=== PATIENT | male | born 1940 | race Caucasian/White ===

== ENCOUNTER → 2017-01-26 | Outpatient (CLI) | payer OTHER ==
[~2017-01-26] MED LIST: ASCA500 PO; ASPI81TA28 PO; ATEN-173 PO; CHOL1000 PO; EZET10TA63 PO; HYDR-5688 PO; LISI2.5T5 PO; METR-163 PO; OMEG10007 PO; PRLSR20 PO; ROSU40TA PO
--- NOTE | 2017-01-26 11:00 | DIAGNOSTIC IMAGING REPORT ---
PET/CT HISTORY: PULMONARY NODULE TECHNIQUE: PET/CT was performed from the base of the skull through the pelvis following the intravenous administration of 15.4 mCi of F18-FDG. Non-contrast CT imaging was performed over the same range without breath-hold for attenuation correction of PET images and anatomic correlation, but not for primary interpretation as it is not of standard diagnostic quality. CT DOSE: 568.62 mGycm COMPARISON: None. FINDINGS: HEAD AND NECK: There is no FDG-avid disease or significant lymphadenopathy in the imaged portions of the head and the neck. CHEST: Altered focal nodular pathology. Pleural-based partially necrotic 5 x 3 cm nodule area in a GE characteristics extend to 12. Right middle lobe nodule measuring 2.7 cm with fibrotic stranding both to the right hilum as well as right lateral pleural surface. A.c. these extend to 5.6 mildly active nodular density right lower lobe measuring 1.4 cm transaxial image 103. Prior median sternotomy. Sessile density anterior right costophrenic angle demonstrating initially characteristics 7. Lateral right base demonstrates an additional linear area of increased pleural activity with SUV of 10. Several low level metabolic activity hilar nodes several additional parenchymal nodules too small to adequately characterize. Abdomen/pelvis: Liver demonstrates multiple hypodensities showing no abnormal increase in activity. This is most consistent with that of hepatic cysts. Unremarkable gastrointestinal as well as genitourinary tract activity characteristics. Unremarkable activity within the urinary bladder. Bilaterally. MUSCULOSKELETAL: There is no FDG-avid or destructive bone lesion. IMPRESSION: 1. Multiple metabolically active nodules throughout both hemithoraces. 2. Pleural based lesions of the right mid and lower hemithorax suggestive of metastatic deposits. 3. Mild mediastinal and/or hilar activity consistent with probable underlying metastatic disease. 4. Study is otherwise negative. 5. Findings of diffuse pulmonary metastatic disease is the diagnosis of exclusion. 6. Several small omental nodes ioo Small to quantify Electronically signed by: Saad Tejada M.D. 01/26/2017 10:57 AM Dictated Date/Time: 01/26/2017 10:44 AM
== END | disposition home or self-care (01) ==
LOC: C.PET 08:29
PROVIDERS: ATTEND Physician Assistant
DX: R91.1 Solitary pulmonary nodule (principal)

== ENCOUNTER 2017-02-25 09:59 | Day surgery (SDC) | payer OTHER ==
[2017-02-10 08:30] VITALS: BMI 31.0
[~2017-02-25] VITALS: Ht 172.7 cm; Wt 92.3 kg
[~2017-02-25 09:59] MED LIST changes: -HYDR-5688 PO; +LACTATED RINGER'S 1000ML 1,000 ML IV SCH
[2017-02-25 10:17] VITALS: BP 189/80; PULSE 64; TEMP 36.6; O2SAT 96; Ht 172.7 cm; Wt 92.3 kg
[2017-02-25] MEDS ORDERED: NURSING VERBAL MED ORDER ONE (10:45)
[2017-02-25] MEDS ORDERED: FENTANYL CITRATE INJ 50 MCG/1 ML 2 ML VIAL ONE (10:46)
[2017-02-25] MEDS ORDERED: MIDAZOLAM HCL 1 MG/ML 2ML VIAL ONE (10:46)
[2017-02-25] MEDS ORDERED: ONDANSETRON INJ 2 MG/ML 2 ML VIAL IV PRN (11:15)
[2017-02-25] MEDS ORDERED: PROMETHAZINE HCL INJ 6.25 MG in SODIUM CHLORIDE 0.9% 50ML 50 ML IV PRN (11:15)
[2017-02-25] MEDS ORDERED: FENTANYL CITRATE INJ 50 MCG/1 ML 2 ML VIAL IV PRN (11:15)
[2017-02-25] MEDS ORDERED: ATROPINE SULFATE 0.1 MG/ML 5ML SYR IV PRN (11:15)
[2017-02-25] MEDS ORDERED: EpHEDrine SULFATE INJ 50 MG/ML AMP IV PRN (11:15)
--- NOTE | 2017-02-25 11:15 | History & Physical Bridge Note ---
H&P Re-Evaluation Bridge Note: I have examined the patient, reviewed the History & Physical and in the interval since the performance of the History & Physical I have noted the following changes of clinical significance: No changes noted
[2017-02-25] MEDS ORDERED: ONDANSETRON INJ 2 MG/ML 2 ML VIAL ONE (11:52)
[2017-02-25] MEDS ORDERED: DEXAMETHASONE SOD INJ 4 MG/ML VIAL ONE (11:52)
[2017-02-25] MEDS ORDERED: GLYCOPYRROLATE INJ 0.2 MG/ML VIAL ONE (11:52)
[2017-02-25] MEDS ORDERED: NEOSTIGMINE METHYLSULFATE 5 MG/5 ML SYR ONE (11:52)
[2017-02-25] MEDS ORDERED: LIDOCAINE HCL 2% 2 ML VIAL (20MG/ML) ONE (11:52)
[2017-02-25] MEDS ORDERED: ROCURONIUM BROMIDE 10 MG/ML 5 ML VIAL ONE (11:52)
[2017-02-25] MEDS ORDERED: PROPOFOL IV EMULSION 10 MG/ML 20 ML VIAL IV ONE (11:52)
--- NOTE | 2017-02-25 13:38 | DIAGNOSTIC IMAGING REPORT ---
CHEST 1 VIEW FRONTAL CLINICAL HISTORY: NAVIGATIONAL BRONCH post bronchoscopy TECHNIQUE: Image intensifier COMPARISON STUDY: None FINDINGS: Image intensifier utilized for navigational bronchoscopy IMPRESSION: Image intensifier utilized for navigational bronchoscopy Electronically signed by: Saad Tejada M.D. 02/25/2017 1:37 PM Dictated Date/Time: 02/25/2017 1:36 PM
--- NOTE | 2017-02-25 13:48 | Bronchoscopy Procedure Note ---
Bronchoscopy Procedure Note Procedure: Flexible-Bronchoscopy, EBUS, FNA bx, Tbbx, GETA , cytology brushing, BAL Consent: Obtained through the patient placed into the chart Preprocedural diagnosis: Lung masses Postprocedural diagnosis: malignant lung masses Analgesia: GETA Sedation: GETA Procedure: The Olympus video bronchoscope and EBUS scope were used for this procedure Initially the flexible bronchoscope was used for evaluation of the airways. The ET tube was notably 5cm above the level of the tejal. Trachea: Visualized portion of the trachea was anatomically within normal limits Tejal: Anatomically within normal limits Right bronchial tree: Right mainstem bronchus: Anatomically within normal limits Right upper lobe: Anatomically within normal limits Bronchus intermedius: Anatomically within normal limits Right middle lobe: Anatomically within normal limits Right lower lobe: Anatomically within normal limits Findings: No significant findings noted Left bronchial tree: Left mainstem bronchus: Anatomically within normal limits Left upper lobe: Anatomically within normal limits Lingula: Anatomically within normal limits Left lower lobe: Anatomically within normal limits Findings: No significant findings noted EBUS/VERN: Tbbx Meryl Stations: 7: # of passes 7 R11: # of passes passes 1 BAL: RML x2 Cytology Brushing: RML x3 Tbbx: RML x6 Complications: None Follow-up: Transfer to the PACU and if ready to d/c home with f/u visit in the [facility]
--- NOTE | 2017-02-25 13:59 | Discharge Instructions ---
Discharge Instructions Date of Service February 25, 2017. Admission Reason for Admission: Pulmonary Nodules Discharge Discharge Diagnosis / Problem: Lung Masses with atypical cells Discharge Goals Goal(s): Diagnostic testing Activity Recommendations Activity Limitations: resume your previous activity . Instructions / Follow-Up Instructions / Follow-Up Follow-Up in the in the [facility] Current Hospital Diet Patient's current hospital diet: Discharge Diet Recommended Diet: Regular Diet Procedures Procedures Performed: Endobronchial Ultrasound Guided Transbronchial Biopsy; Electromagnetic Navigational Bronchoscopy, trans bronchial biopsies, cytology brushings, and bronchial lavage Pending Studies Studies pending at discharge: no Medical Emergencies . Who to Call and When: Medical Emergencies: If at any time you feel your situation is an emergency, please call 911 immediately. . Non-Emergent Contact Non-Emergency issues call your: [employer] Consultant Call Non-Emergent contact if: temperature is above 101.5 . . "Provider Documentation" section prepared by Pavan Rome. . VTE Core Measure Inpt VTE Proph given/why not?: Treatment not indicated
--- NOTE | 2017-02-25 14:00 | DIAGNOSTIC IMAGING REPORT ---
CHEST ONE VIEW PORTABLE HISTORY: Post biopsy. Pulmonary nodules. COMPARISON: Chest CT 01/05/2017. FINDINGS: No pneumothorax. The heart remains mildly enlarged. There are postoperative changes. There are low lung volumes. Diffuse interstitial and vascular thickening has progressed. This suggest mild pulmonary edema. There may be trace bilateral pleural effusions. Left upper lobe masslike airspace opacity persists. The right lower lobe mass is obscured by increased opacification within the right lung base. Left basilar linear densities favor atelectasis. IMPRESSION: 1. No pneumothorax. 2. Mild interstitial pulmonary edema and trace bilateral pleural effusions. 3. Progressive opacification surrounding the right lung base mass. The left upper lobe masslike opacity persists. Electronically signed by: Yefri Marin M.D. 02/25/2017 1:59 PM Dictated Date/Time: 02/25/2017 1:56 PM
[2017-02-25 14:15] VITALS: BP 125/67; PULSE 65; TEMP 36.4; O2SAT 92
--- NOTE | 2017-02-25 14:16 | Anesthesiology Progress Note ---
Anesthesia Post Op Note Date & Time February 25, 2017 at 14:16 Vital Signs Pain Intensity: 0 Vital Signs Past 12 Hours Date Time Temp Pulse Resp B/P Pulse Ox O2 Delivery O2 Flow Rate FiO2 02/25/17 14:07 36.6 02/25/17 14:06 138/72 02/25/17 14:03 58 19 02/25/17 14:03 59 19 97 02/25/17 14:01 135/73 02/25/17 13:58 56 14 02/25/17 13:58 57 14 94 02/25/17 13:56 121/72 02/25/17 13:53 59 14 02/25/17 13:53 59 14 97 02/25/17 13:52 Room Air 02/25/17 13:51 125/55 02/25/17 13:48 64 16 02/25/17 13:48 64 16 99 02/25/17 13:46 119/55 02/25/17 13:43 68 21 02/25/17 13:43 67 21 98 02/25/17 13:41 115/54 02/25/17 13:39 96/68 02/25/17 13:38 73 14 02/25/17 13:38 73 14 98 02/25/17 13:33 36.6 73 18 96/68 97 Mask 10 02/25/17 10:17 36.6 64 20 189/80 96 Room Air Notes Mental Status: alert / awake / arousable, participated in evaluation Pt Amnestic to Procedure: Yes Nausea / Vomiting: adequately controlled Pain: adequately controlled Airway Patency, RR, SpO2: stable & adequate BP & HR: stable & adequate Hydration State: stable & adequate Anesthetic Complications: no major complications apparent
[2017-02-25 14:45] VITALS: BP 142/76; PULSE 66; TEMP 35.8; O2SAT 94
[2017-05-11] MEDS ORDERED: HYDR-5688 PO (08:59)
== END 2017-02-25 14:55 | disposition home or self-care (01) ==
LOC: C.ACU 09:59
PROVIDERS: ATTEND Internal Medicine Critical Care Medicine
DX: C34.2 Malignant neoplasm of middle lobe, bronchus or lung (principal); I10 Essential (primary) hypertension; E11.9 Type 2 diabetes mellitus without complications; K21.9 Gastro-esophageal reflux disease without esophagitis; I25.10 Atherosclerotic heart disease of native coronary artery without angina pectoris; Z87.891 Personal history of nicotine dependence; Z95.1 Presence of aortocoronary bypass graft; Z98.890 Other specified postprocedural states; E66.9 Obesity, unspecified; Z68.31 Body mass index [BMI] 31.0-31.9, adult

== ENCOUNTER → 2017-03-27 | Day surgery (SDC) | payer OTHER ==
[2017-03-27] VITALS (7 sets, daily range): BP systolic 137–184; BP diastolic 69–81; PULSE 62–68; TEMP 36.4–36.8; O2SAT 94–97; Ht 172.7 cm; Wt 90.0 kg
[~2017-03-27] VITALS: Ht 172.7 cm; Wt 90.0 kg
[~2017-03-27] MED LIST changes: +HYDR-5688 PO; -LACTATED RINGER'S 1000ML 1,000 ML IV SCH
[2017-03-27 09:51] LABS: BASO % 0.2 %; BASO ABS # 0.02 K/uL (0-0.2); EOS % 0.8 %; HEMATOCRIT 42.5 % (42-52); IG% 0.2 %; LYMPH % 19.2 %; LYMPH ABS # 2.42 K/uL (1.2-3.4); MEAN CORPUSCULAR HEMOGLOBIN 31.2 pg (25-34); MEAN PLATELET VOLUME 9.4 fL (7.4-10.4); MONO % 6.2 %; NEUT % 73.4 %; PLATELET COUNT 395 K/uL (130-400); RED BLOOD COUNT 4.52 M/uL (4.7-6.1); WHITE BLOOD COUNT 12.59 K/uL (4.8-10.8)
[2017-03-27 09:59] LABS: PARTIAL THROMBOPLASTIN RATIO 1.1; PROTHROMBIN TIME (PATIENT) 10.3 SECONDS (9.0-12.0)
[2017-03-27 10:15] LABS: COMPLETE YES; MEAN CORPUSCULAR HGB CONC 33.2 g/dl (32-36)
--- NOTE | 2017-03-27 11:32 | Discharge Instructions ---
Discharge Instructions Procedure Procedure Date: Mar 27, 2017. Reason for visit: Non Small Cell Lung Ca, Left Upper Lobe. Discharge Discharge Date: Mar 27, 2017. Discharge Diagnosis: s/p biopsy of left upper lobe mass Instructions Activity Recommendations: 1 Day-May resume regular activity Return to School/Work: no limitations Recommended Home Diet: No Limitations Provider Instructions: ACTIVITY RECOMMENDATIONS: * Rest today. * Resume regular activity in one day. MEDICATIONS: * May take Tylenol or Ibuprofen as needed for pain. DIET: * Resume previous diet. SPECIAL CARE INSTRUCTIONS: Call your doctor if: * Temperature above 101 degrees F. * Pain not relieved by pain medicine ordered. * Increased drainage or redness from incision. * Notify your doctor with any questions or concerns. Call your doctor or go to the nearest Emergency Department if you experience: * Increased chest pain or shortness of breath. FOLLOW UP VISIT: Follow-up with Referring Physician as scheduled. Allergies Coded Allergies: No Known Allergies (Unverified , 03/27/17) Bailey Anderson Recommendations: Call your doctor if: * Temperature above 101 degrees * Pain not relieved by pain medicine ordered * There is increased drainage or redness from any incision * You have any unanswered questions or concerns. Your Doctors Instructions noted above were prepared by provider Donnell Cox. Patient Signature Section: Patient Instructions Signature Page Jim Novoa Patient (or Guardian) Signature/Date: I have read and understand the instructions given to me by my caregivers. Caregiver/RN/Doctor Signature/Date: The above-named patient and/or guardian has received patient instructions on this date. + Original Patient Signature Page (only) stays with chart. Please make copy for patient.
--- NOTE | 2017-03-27 11:35 | DIAGNOSTIC IMAGING REPORT ---
CT GUIDED FINE NEEDLE ASPIRATION OF LEFT UPPER LOBE MASS CT DOSE: 856.27 mGycm CLINICAL HISTORY: Left upper lobe mass. COMPARISON STUDY: PET/CT January 26, 2017. PROCEDURE: The procedure, risks and benefits were discussed with the patient including the risk of pneumothorax, hemoptysis and infection. The patient agreed to the procedure and informed written consent was obtained. The procedure was performed by Dr. Cox following a timeout. Axial unenhanced images through the chest again demonstrated the irregular subpleural left upper lobe mass which was targeted for biopsy. Skin was prepped and draped in sterile fashion and local anesthesia with 2 with 1% lidocaine. Under intermittent CT guidance, 3 22-gauge fine needle aspirations of the left upper lobe mass were performed utilizing Forest needles. Several groups of suspicious cells were noted on the third pass. No additional sampling was performed. Post procedure CT demonstrated no pneumothorax. The patient tolerated the procedure well and no immediate complications were evident. IMPRESSION: CT-guided fine needle aspiration of left upper lobe mass. Electronically signed by: Donnell Cox M.D. 03/27/2017 11:34 AM Dictated Date/Time: 03/27/2017 11:28 AM
--- NOTE | 2017-03-27 12:09 | DIAGNOSTIC IMAGING REPORT ---
CHEST ONE VIEW PORTABLE CLINICAL HISTORY: s/p biopsy left upper lobe mass COMPARISON STUDY: Chest radiograph February 25, 2017. FINDINGS: There is no pneumothorax. The left upper lobe mass is again noted. The known right middle lobe mass is not well depicted due to technique. A right infrahilar nodule likely reflects the known right lower lobe nodule. There are median sternotomy wires. No evidence of pulmonary edema. IMPRESSION: 1. No pneumothorax following biopsy of left upper lobe mass. 2. Redemonstration of multiple pulmonary nodules and masses, as shown on prior PET/CT. Electronically signed by: Donnell Cox M.D. 03/27/2017 12:08 PM Dictated Date/Time: 03/27/2017 12:05 PM
== END | disposition home or self-care (01) ==
LOC: C.ACU 08:29
PROVIDERS: ATTEND Internal Medicine Hematology & Oncology
DX: C34.2 Malignant neoplasm of middle lobe, bronchus or lung (principal)

== ENCOUNTER → 2017-04-03 | Outpatient (CLI) | payer OTHER ==
[~2017-04-03] MED LIST changes: +GADAVIST IV PRN
--- NOTE | 2017-04-03 10:57 | DIAGNOSTIC IMAGING REPORT ---
Brain MRI WITH AND WITHOUT CONTRAST HISTORY: Lung cancer. TECHNIQUE: Multiplanar multisequence MRI of the brain was performed both before and after the intravenous administration of contrast. COMPARISON STUDY: None. FINDINGS: There is no mass, hematoma, midline shift, or acute infarct. The paranasal sinuses are clear. The mastoid air cells are clear. The ventricles and sulci demonstrate mild age-related involutional changes. Scattered foci of T2 hyperintensity seen within the periventricular and subcortical white matter are nonspecific but suggestive of mild microvascular ischemic changes. The major vascular flow voids at the skull base are well-maintained. No abnormal enhancement. The pituitary gland is at the upper limits of normal measuring 1 cm in height. Best seen on axial T2 sequence image 12 there is a slightly T2 hyperintense 12 mm nodule within the right side of the pituitary gland IMPRESSION: 1. No definite evidence for metastatic disease within the brain. 2. A 12 mm nodule within the right side of the pituitary gland. This is nonspecific but favors a macroadenoma. A metastatic focus is considered less likely. Recommend dedicated pituitary MRI for further evaluation. Electronically signed by: Yefri Marin M.D. 04/03/2017 10:56 AM Dictated Date/Time: 04/03/2017 10:40 AM
== END | disposition home or self-care (01) ==
LOC: C.MRI 09:37
PROVIDERS: ATTEND Internal Medicine Hematology & Oncology
DX: C34.90 Malignant neoplasm of unspecified part of unspecified bronchus or lung (principal)

== ENCOUNTER 2017-04-10 09:39 | Observation (INO) | payer OTHER ==
[~2017-04-10] VITALS: Ht 172.7 cm; Wt 90.0 kg
[2017-04-10] VITALS (8 sets, daily range): BP systolic 115–163; BP diastolic 69–80; PULSE 58–80; TEMP 36.4–36.8; O2SAT 91–94; Ht 172.7 cm; Wt 90.0 kg
[~2017-04-10 09:39] MED LIST changes: +ATROPINE SULFATE 0.1 MG/ML 5ML SYR IV PRN; +EpHEDrine SULFATE INJ 50 MG/ML AMP IV PRN; +FENTANYL CITRATE INJ 50 MCG/1 ML 2 ML VIAL IV PRN; -GADAVIST IV PRN; -HYDR-5688 PO; +HYDROmorphone INJ 1 MG/ML SYR IV PRN; +LACTATED RINGER'S 1000ML 1,000 ML IV SCH; +ONDANSETRON INJ 2 MG/ML 2 ML VIAL IV PRN
--- NOTE | 2017-04-10 11:52 | History & Physical Bridge Note ---
H&P Re-Evaluation Bridge Note: I have examined the patient, reviewed the History & Physical and in the interval since the performance of the History & Physical I have noted the following changes of clinical significance:We will proceed with a robot assisted thoracoscopic wedge resection of the right middle lobe mass. No changes noted
[2017-04-10] MEDS ORDERED: MIDAZOLAM HCL 1 MG/ML 2ML VIAL ONE (12:04)
[2017-04-10] MEDS ORDERED: FENTANYL CITRATE INJ 50 MCG/1 ML 2 ML VIAL ONE ×3 (12:04→15:26)
[2017-04-10] MEDS ORDERED: BUPIVACAINE LIPOSOME 1/3% 266 MG/20 ML VIAL INFIL ONE (12:21)
[2017-04-10] MEDS ORDERED: SODIUM CHLORIDE 0.9% PF 50 ML VIAL ONE (12:21)
[2017-04-10] MEDS ORDERED: LABETALOL HCL IV 5 MG/ML 20ML IV ONE (13:59)
[2017-04-10] MEDS ORDERED: LIDOCAINE HCL 2% 2 ML VIAL (20MG/ML) ONE (13:59)
[2017-04-10] MEDS ORDERED: ROCURONIUM BROMIDE 10 MG/ML 5 ML VIAL ONE (13:59)
[2017-04-10] MEDS ORDERED: PROPOFOL IV EMULSION 10 MG/ML 20 ML VIAL IV ONE (13:59)
[2017-04-10] MEDS ORDERED: NEOSTIGMINE METHYLSULFATE 5 MG/5 ML SYR ONE (13:59)
[2017-04-10] MEDS ORDERED: CEFAZOLIN SOD 1 GM VIAL ONE (13:59)
[2017-04-10] MEDS ORDERED: ONDANSETRON INJ 2 MG/ML 2 ML VIAL ONE (13:59)
[2017-04-10] MEDS ORDERED: DEXAMETHASONE SOD INJ 4 MG/ML VIAL ONE (13:59)
[2017-04-10] MEDS ORDERED: GLYCOPYRROLATE INJ 0.2 MG/ML VIAL ONE (13:59)
[2017-04-10] MEDS ORDERED: PHENYLEPHRINE 100MCG/ML 5ML SYR ONE (14:35)
[2017-04-10] MEDS ORDERED: EpHEDrine SULFATE 50MG/5ML SYR ONE (14:35)
--- NOTE | 2017-04-10 15:10 | [facility] Operative Report ---
Operative Report Date of Service Apr 10, 2017. 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 Surgeon: Dr. Trinh Procedure: Patient brought to the operating room placed in the supine position. Gen. anesthesia was induced and endotracheal intubation was performed with a double lumen tube. Patient was then turned into a left lateral decubitus position and right chest was prepped and draped in usual sterile fashion. After an appropriate timeout and prophylactic antibiotics given, a camera port was placed just anterior to midaxillary line. This was just above the diaphragm. A 0 thoracoscope was placed and it could be seen there were no adhesions. A 8.5 mm port was placed in about the seventh interspace anteriorly and then another 8 mm port was placed in the ninth interspace posteriorly. The switchboard operator assistant 's port was placed just above the diaphragm and in the anterior axillary line. With this we were easily able to see the mass in the middle lobe which had shown up on the PET scan. Using the robotic stapler this was stapled across twice and delivered off the field in the Endobag. I sent this for frozen section and it appeared we had enough tissue. While waiting for this there was another obvious mass in the superior segment of the right lower lobe and again I wedged this out using 2 Endo KAVITHA staplers from [employer]. Again this was removed with an Endobag. There is no significant bleeding. While waiting for the frozen sections I used 266 mg of liposomal bupivacaine in 60 mL total normal saline injected from the second to 11th rib for an intercostal block. The frozen section came back and Dr. Maury Harrison stated that they had plenty of tissue with which to work. I irrigated out the chest. There is no bleeding and no air leak and the lung was inflated. A 24 [place] chest tube was placed in the switchboard operator assistant's port and directed towards the apex and held in place with heavy silk suture. The the robot was undocked and all ports removed. 0 Vicryl was used to close the muscle layers of the remaining ports. 4 Monocryl was used in a running subcuticular fashion to reapproximate the skin edges. He tolerated well was extubated. Transported back to the post anesthesia care unit in stable condition. He had negligible blood loss. He did not have an air leak at the conclusion of the case. I attest to the content of the Intraoperative Record and any orders documented therein. Any exceptions are noted below.
[2017-04-10] MEDS ORDERED: PANTOprazole SOD 40 MG TAB PO PRN (15:15)
[2017-04-10] MEDS ORDERED: ENOXAPARIN 40 MG/0.4 ML SYR SQ SCH (15:15)
[2017-04-10] MEDS ORDERED: MoRPHine SULFATE 2 MG/ML CARP IV PRN (15:15)
--- NOTE | 2017-04-10 15:58 | DIAGNOSTIC IMAGING REPORT ---
CHEST ONE VIEW PORTABLE CLINICAL HISTORY: RATS postoperative evaluation COMPARISON STUDY: 03/27/2017 FINDINGS: Unremarkable postoperative change right hemithorax. Right lateral chest tube in position. No significant pneumothorax. Subsegmental atelectasis right base. Pleural-based density left upper lung unchanged. IMPRESSION: Unremarkable postoperative change status post right thoracotomy. Segmental atelectasis right base. Electronically signed by: Saad Tejada M.D. 04/10/2017 3:57 PM Dictated Date/Time: 04/10/2017 3:55 PM
--- NOTE | 2017-04-10 16:05 | Anesthesiology Progress Note ---
Anesthesia Post Op Note Date & Time Apr 10, 2017 at 16:05 Vital Signs Pain Intensity: 3 Vital Signs Past 12 Hours Date Time Temp Pulse Resp B/P (MAP) Pulse Ox O2 Delivery O2 Flow Rate FiO2 04/10/17 15:55 58 15 130/66 94 Nasal Cannula 2 04/10/17 15:45 63 17 125/64 93 Nasal Cannula 2 04/10/17 15:35 62 12 108/73 96 Mask 6 04/10/17 15:25 59 14 120/64 94 Mask 10 04/10/17 15:15 48 12 104/60 93 Mask 10 04/10/17 15:07 36.0 59 16 101/61 94 Mask 10 04/10/17 09:45 36.5 58 20 163/76 (105) 94 Room Air Notes Mental Status: alert / awake / arousable, participated in evaluation Pt Amnestic to Procedure: Yes Nausea / Vomiting: adequately controlled Pain: adequately controlled Airway Patency, RR, SpO2: stable & adequate BP & HR: stable & adequate Hydration State: stable & adequate Anesthetic Complications: no major complications apparent
[2017-04-10] MEDS ORDERED: IV FLUIDS COMPLETED PRN (16:30)
[2017-04-10] MEDS: D5W AND 1/2NSS 1,000 ML IV SCH (17:16)
[2017-04-10] MEDS: KETOROLAC TROMETHAMINE 15 MG/ML VIAL IV. SCH (18:33)
[2017-04-10 18:36] LABS: HEMATOCRIT 42.6 % (42-52); MEAN CELL VOLUME 94.9 fL (80-100); MEAN CORPUSCULAR HEMOGLOBIN 32.5 pg (25-34); MEAN CORPUSCULAR HGB CONC 34.3 g/dl (32-36); PLATELET COUNT 332 K/uL (130-400); RED BLOOD COUNT 4.49 M/uL (4.7-6.1); WHITE BLOOD COUNT 18.21 K/uL (4.8-10.8)
[2017-04-10] MEDS ORDERED: LISINOPRIL 2.5 MG TAB PO SCH (21:00)
[2017-04-10] MEDS ORDERED: EZETIMIBE 10MG TAB PO SCH (21:00)
[2017-04-10] MEDS ORDERED: ROSUVASTATIN CALCIUM 20 MG TAB PO SCH (21:00)
[2017-04-10] MEDS: DOCUSATE SODIUM 100 MG CAP PO SCH (21:02)
[2017-04-10] MEDS: METOCLOPRAMIDE HCL INJ 5 MG/ML 2 ML VIAL IV. SCH (21:08)
[2017-04-10] MEDS: CEFAZOLIN IV 2,000 MG in DEXTROSE 5% 50ML 100 ML IV SCH (21:08)
[2017-04-10] MEDS: OXYCODONE/ACETAMINOPHEN 5-325 TAB PO PRN (23:36)
[2017-04-11] MEDS: D5W AND 1/2NSS 1,000 ML IV SCH ×2 (01:35→09:27)
[2017-04-11] MEDS: KETOROLAC TROMETHAMINE 15 MG/ML VIAL IV. SCH ×2 (01:35→09:26)
[2017-04-11 03:38] VITALS: BP 106/63; PULSE 85; TEMP 36.5; O2SAT 91
[2017-04-11 04:15] VITALS: O2SAT 91
[2017-04-11] MEDS: OXYCODONE/ACETAMINOPHEN 5-325 TAB PO PRN ×2 (05:53→10:42)
[2017-04-11] MEDS: CEFAZOLIN IV 2,000 MG in DEXTROSE 5% 50ML 100 ML IV SCH (05:54)
[2017-04-11] MEDS: METOCLOPRAMIDE HCL INJ 5 MG/ML 2 ML VIAL IV. SCH (05:58)
[2017-04-11 07:04] VITALS: BP 102/62; PULSE 86; TEMP 36.7; O2SAT 92
[2017-04-11 07:30] VITALS: O2SAT 92
[2017-04-11 07:30] LABS: PARTIAL THROMBOPLASTIN RATIO 1.1; PROTHROMBIN TIME (PATIENT) 10.8 SECONDS (9.0-12.0)
[2017-04-11] MEDS ORDERED: ENOXAPARIN 40 MG/0.4 ML SYR SQ SCH (08:00)
--- NOTE | 2017-04-11 08:30 | Discharge Instructions ---
Discharge Instructions Date of Service Apr 11, 2017. Admission Reason for Admission: Right Lung Nodule, Lung Andocarcinoma Discharge Discharge Diagnosis / Problem: Same Discharge Goals Goal(s): Decrease discomfort, Learn about illness (Will discuss pathology results with Dr Draper and DR Trinh) Activity Recommendations Activity Limitations: as noted below Lifting Limitations: gradually increase as tolerated Exercise/Sports Limitations: gradually increase as tolerated May Resume Sexual Activity: when tolerated Shower/Bathe: may shower/bathe in 3 days Driving or Machine Use: resume 3 days after discharge . Instructions / Follow-Up Instructions / Follow-Up Return to see Dr Trinh on , 04-16-17 and get a chest xray at hospital before he sees you. Current Hospital Diet Patient's current hospital diet: Regular Diet Discharge Diet Recommended Diet: Regular Diet Procedures Procedures Performed: Robotic Assisted Right Video Assisted Thoracoscopy with Wedge Resection Pending Studies Studies pending at discharge: yes List of pending studies: Pathology Medical Emergencies . Who to Call and When: Medical Emergencies: If at any time you feel your situation is an emergency, please call 911 immediately. . Non-Emergent Contact Non-Emergency issues call your: Primary Care Provider . "Provider Documentation" section prepared by Ray Trinh. . Development Administrator Recommendations Development Administrator Recommendations: Remove all dressings and shower on Thursday, April 13, 2017. Call the hospital at [phone] Trinh for any problems. VTE Core Measure Inpt VTE Proph given/why not?: Enoxaparin (Lovenox)SQ, SCD's
--- NOTE | 2017-04-11 08:35 | DIAGNOSTIC IMAGING REPORT ---
CHEST ONE VIEW PORTABLE CLINICAL HISTORY: Chest tube removal. COMPARISON STUDY: Chest radiograph April 10, 2017. FINDINGS: The right sided chest tube has been removed. There is mild motion artifact on this exam. No pneumothorax is identified. A left upper lobe mass is again noted. Right lower lung opacity persists. There is right hemithorax volume loss. Cardiomegaly is unchanged. There are median sternotomy wires. There is no evidence of pulmonary edema. IMPRESSION: 1. No pneumothorax following right chest tube removal. 2. Right lower lung opacity with volume loss. 3. Redemonstration of the known left upper lobe mass. Electronically signed by: Donnell Cox M.D. 04/11/2017 8:33 AM Dictated Date/Time: 04/11/2017 8:27 AM
[2017-04-11 08:52] VITALS: BP 95/54
[2017-04-11] MEDS: DOCUSATE SODIUM 100 MG CAP PO SCH (08:54)
[2017-04-11] MEDS ORDERED: ASPIRIN 81 MG ECTAB PO SCH (09:00)
[2017-04-11] MEDS ORDERED: ASCORBIC ACID 500 MG TAB PO SCH (09:00)
--- NOTE | 2017-04-11 09:10 | Discharge Summary ---
Discharge Summary Date of Service Apr 11, 2017. Discharge Summary Discharge summary: Date of admission: 04/10/2017 Date of discharge: 04/11/2017 Hospital course: This is a 76-year-old male who has known bilateral adenocarcinoma with a long period he has been biopsied multiple times and we still did not have enough tissue to do a molecular analysis. As the expression of these mutational receptors is so important, Dr. Draper's sent the patient to my office this past week and asked if we would perform a minimally invasive excisional biopsy. At 04/10/2017 I took the patient to the operating room and did a robot assisted thoracoscopic surgery and biopsied the right lower lobe and right middle lobe. The lower lobe nodule was larger, however the middle lobe nodule was evaluated with a frozen section by Dr. Maury Harrison. Dr. Harrison felt this was indeed a carcinoma and that he had enough tissue to perform the necessary molecular analysis. Patient was extubated in the room. He had negligible blood loss. He had very little pain overnight. I removed his chest tube the day after surgery. His x- ray looked fine. He already had some narcotics from Dr. Draper at home so I did not give him any new prescriptions. His incisions are clean and he sounded quite good and was ambulating in the hallways and tolerating a diet. I will see him back in the office next week to go over his preliminary pathology results and to repeat a chest x-ray.
[2017-04-11 09:45] VITALS: BP 95/54; PULSE 86; TEMP 36.7; O2SAT 92
[2017-05-11] MEDS ORDERED: HYDR-5688 PO (08:59)
== END 2017-04-11 11:06 | disposition home or self-care (01) ==
LOC: C.ACU 09:39 → C.MSW 15:19 → ENRESERV 16:35
PROVIDERS: ADMIT Surgery; ATTEND Surgery
DX: C34.2 Malignant neoplasm of middle lobe, bronchus or lung (principal); E11.9 Type 2 diabetes mellitus without complications; I25.10 Atherosclerotic heart disease of native coronary artery without angina pectoris; I10 Essential (primary) hypertension; E66.9 Obesity, unspecified; E78.5 Hyperlipidemia, unspecified; E78.00 Pure hypercholesterolemia, unspecified; Z86.74 Personal history of sudden cardiac arrest; Z87.891 Personal history of nicotine dependence; Z98.890 Other specified postprocedural states; Z95.1 Presence of aortocoronary bypass graft; Z79.82 Long term (current) use of aspirin; Z79.899 Other long term (current) drug therapy; Z80.0 Family history of malignant neoplasm of digestive organs; Z83.1 Family history of other infectious and parasitic diseases
CPT/HCPCS: 32666; 32667; S2900

== ENCOUNTER → 2017-04-16 | Outpatient (CLI) | payer OTHER ==
[~2017-04-16] MED LIST changes: -ATROPINE SULFATE 0.1 MG/ML 5ML SYR IV PRN; -EpHEDrine SULFATE INJ 50 MG/ML AMP IV PRN; -FENTANYL CITRATE INJ 50 MCG/1 ML 2 ML VIAL IV PRN; +HYDR-5688 PO; -HYDROmorphone INJ 1 MG/ML SYR IV PRN; -LACTATED RINGER'S 1000ML 1,000 ML IV SCH; -METR-163 PO; -ONDANSETRON INJ 2 MG/ML 2 ML VIAL IV PRN
--- NOTE | 2017-04-16 10:26 | DIAGNOSTIC IMAGING REPORT ---
CHEST 2 VIEWS ROUTINE CLINICAL HISTORY: C34.90, R91.8 pulmonary nodule COMPARISON STUDY: 04/11/2017 FINDINGS: No evidence pneumothorax status post biopsy. Unchanging parenchymal densities and/or lesions of the left upper lung and right base. Diaphragms are smooth. Prior median sternotomy is again noted. IMPRESSION: Unchanging bilateral parenchymal and pleural-based lesions. No evidence pneumothorax. Electronically signed by: Saad Tejada M.D. 04/16/2017 10:25 AM Dictated Date/Time: 04/16/2017 10:24 AM
== END | disposition home or self-care (01) ==
LOC: C.RAD 10:06
PROVIDERS: ATTEND Surgery
DX: C34.90 Malignant neoplasm of unspecified part of unspecified bronchus or lung (principal); R91.8 Other nonspecific abnormal finding of lung field

== ENCOUNTER → 2017-05-11 | Day surgery (SDC) | payer OTHER ==
[~2017-05-11] VITALS: Ht 172.7 cm; Wt 89.5 kg
[~2017-05-11] MED LIST changes: +ATROPINE SULFATE 0.1 MG/ML 5ML SYR IV PRN; +CEFAZOLIN IV 2,000 MG/60 ML D5W IV ONE; +CEFAZOLIN SOD 1 GM VIAL ONE; +EpHEDrine SULFATE INJ 50 MG/ML AMP IV PRN; +FENTANYL CITRATE INJ 50 MCG/1 ML 2 ML VIAL IV PRN; +FENTANYL CITRATE INJ 50 MCG/1 ML 2 ML VIAL ONE; +HEPARIN SOD (PORCINE) 1000 UNIT/ML 10 ML VIAL ONE; +HYDROCODONE/ACETAMOPHEN 5/325MG TAB PO PRN; +LACTATED RINGER'S 1000ML 1,000 ML IV SCH; +LIDOCAINE HCL 1% 20 ML VIAL ONE; +LIDOCAINE HCL 2% 2 ML VIAL (20MG/ML) ONE; +MIDAZOLAM HCL 1 MG/ML 2ML VIAL ONE; +ONDANSETRON INJ 2 MG/ML 2 ML VIAL IV PRN; +PROPOFOL IV EMULSION 10 MG/ML 20 ML VIAL IV ONE; +THROMBIN FOR SOLN 20000 UNIT KIT ONE
[2017-05-11 06:46] VITALS: BP 145/67; PULSE 73; TEMP 36.7; O2SAT 97; Ht 172.7 cm; Wt 89.5 kg
--- NOTE | 2017-05-11 09:01 | Discharge Instructions ---
Discharge Instructions Date of Service May 11, 2017. Visit Reason for Visit: Adenocarcinoma of Lung, Stage 4 Discharge Discharge Diagnosis / Problem: port placement Discharge Goals Goal(s): Improve disease control Activity Recommendations Activity Limitations: as noted below Shower/Bathe: keep incision dry (may shower tomorrow) Driving or Machine Use: Anesthesia . Post Anesthesia Instructions: If you have had General Anesthesia or IV Sedation: * Do not drive today. * Resume driving when surgeon permits. * Do not make important decisions or sign legal documents today. * Call surgeon for: 1. Temperature elevations greater than 101 degrees F. 2. Uncontrollable pain. 3. Excessive bleeding. 4. Persistent nausea and vomiting. 5. Medication intolerance (nausea, vomiting or rash). * For nausea and vomiting use only clear liquids such as: tea, soda, bouillon until nausea subsides, then gradually increase diet as tolerated. * If you have any concerns or questions, call your surgeon's office. If physician is unavailable and it is an emergency, call 911 or go to the nearest emergency room. . Instructions / Follow-Up Instructions / Follow-Up Dr. Cunha office in 2 weeks for suture removal, call [phone] for any questions OK for port to be used Diet Recommendations Recommended Home Diet: no limitations Procedures Procedures Performed: Infusaport Insertion into left subclavian vein Pending Studies Studies pending at discharge: no Medical Emergencies . Who to Call and When: Medical Emergencies: If at any time you feel your situation is an emergency, please call 911 immediately. . Non-Emergent Contact Non-Emergency issues call your: Surgeon Call Non-Emergent contact if: you have a fever, temperature is above 101.5, your pain is not controlled, wound has increased redness . . "Provider Documentation" section prepared by Yogi Song. .
--- NOTE | 2017-05-11 09:12 | [facility] Operative Report ---
Operative Report Operative Date May 11, 2017. 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 Any exceptions are noted below.
[2017-05-11 09:30] VITALS: BP 124/65; PULSE 60; TEMP 36.6; O2SAT 93
--- NOTE | 2017-05-11 09:33 | OPERATIVE REPORT ---
DATE OF OPERATION: 05/11/2017 NAME OF OPERATION: Access port placement. PREOPERATIVE DIAGNOSIS: Lung cancer. POSTOPERATIVE DIAGNOSIS: Same. STAFF SURGEON: Dr. Matthew. ANESTHESIA: 1% plain lidocaine with sedation. PROCEDURE: The patient was brought in the operating room and placed on the operating table in supine position. His left chest was prepped and draped in usual fashion. 1% plain lidocaine was used to anesthetize the skin and subcutaneous tissue over the left deltopectoral groove. Incision made carrying dissection down, identifying a very small cephalic vein. At this point, the patient was placed in Trendelenburg position. Using a puncture technique, the left subclavian vein was localized, a wire passed under fluoroscopy, and then the dilator and introducer passed over the wire under fluoroscopy, the dilator and wire removed. Catheter was passed through the introducer under fluoroscopy, positioned appropriately, the introducer was removed. The catheter was aspirated and flushed with heparinized solution. A pocket was fashioned in the chest wall. The port was attached to the catheter. The port was aspirated and flushed with heparinized solution and then placed into the pocket, secured to the chest wall using 3-0 Prolene suture. The site was irrigated with antibiotic solution. Subcutaneous tissue reapproximated using 2-0 chromic catgut suture, then the skin reapproximated using 4-0 nylon suture. Dressing was applied and the patient transferred to recovery room in stable condition. I attest to the content of the Intraoperative Record and any orders documented therein. Any exception s are noted below.
--- NOTE | 2017-05-11 09:33 | DIAGNOSTIC IMAGING REPORT ---
CHEST ONE VIEW PORTABLE CLINICAL HISTORY: A-Port catheter placement COMPARISON STUDY: 04/16/2017 FINDINGS: The heart is borderline enlarged. There is mild elevation right hemidiaphragm. There are postsurgical changes of a midline sternotomy. There are bilateral pulmonary nodules. The 3.8 cm left upper lobe point nodule remains unchanged. A 24 mm right lower lobe nodule also remains similar. There are right basilar atelectatic changes. There has been interval placement of a left subclavian A-Port catheter.[ The tip projects over the atriocaval junction. No pneumothorax is visualized. IMPRESSION: 1. No evidence of pneumothorax status post placement of a left subclavian A-Port catheter 2. Persistent bilateral pulmonary nodules. Electronically signed by: Rodolfo Maloney M.D. 05/11/2017 9:32 AM Dictated Date/Time: 05/11/2017 9:29 AM
[2017-05-11 10:00] VITALS: BP 127/61; PULSE 60; O2SAT 94
[2017-05-11 10:25] VITALS: BP 131/64; PULSE 62; TEMP 36.6; O2SAT 95
--- NOTE | 2017-05-11 12:08 | Anesthesiology Progress Note ---
Anesthesia Post Op Note Date & Time May 11, 2017 at 12:08 Vital Signs Pain Intensity: 0 Vital Signs Past 12 Hours Date Time Temp Pulse Resp B/P (MAP) Pulse Ox O2 Delivery O2 Flow Rate FiO2 05/11/17 10:25 36.6 62 18 131/64 95 Room Air 05/11/17 10:00 60 18 127/61 94 Room Air 05/11/17 09:30 36.6 60 18 124/65 93 Room Air 05/11/17 09:15 60 18 118/70 94 Room Air 05/11/17 09:05 36.4 67 11 106/70 97 Mask 10 05/11/17 06:46 36.7 73 18 145/67 (93) 97 Room Air Notes Mental Status: alert / awake / arousable, participated in evaluation Pt Amnestic to Procedure: Yes Nausea / Vomiting: adequately controlled Pain: adequately controlled Airway Patency, RR, SpO2: stable & adequate BP & HR: stable & adequate Hydration State: stable & adequate Anesthetic Complications: no major complications apparent
== END | disposition home or self-care (01) ==
LOC: C.ACU 06:31
PROVIDERS: ATTEND Surgery
DX: C34.90 Malignant neoplasm of unspecified part of unspecified bronchus or lung (principal); N40.0 Benign prostatic hyperplasia without lower urinary tract symptoms; K27.7 Chronic peptic ulcer, site unspecified, without hemorrhage or perforation; I25.10 Atherosclerotic heart disease of native coronary artery without angina pectoris; E11.9 Type 2 diabetes mellitus without complications; K21.9 Gastro-esophageal reflux disease without esophagitis; Z95.1 Presence of aortocoronary bypass graft; E78.5 Hyperlipidemia, unspecified; I10 Essential (primary) hypertension; M19.90 Unspecified osteoarthritis, unspecified site; Z86.74 Personal history of sudden cardiac arrest; Z80.0 Family history of malignant neoplasm of digestive organs; Z83.3 Family history of diabetes mellitus; Z87.891 Personal history of nicotine dependence; Z79.82 Long term (current) use of aspirin; Z87.01 Personal history of pneumonia (recurrent); E66.9 Obesity, unspecified

== ENCOUNTER → 2017-05-22 | Outpatient (CLI) | payer OTHER ==
[~2017-05-22] MED LIST changes: -ATROPINE SULFATE 0.1 MG/ML 5ML SYR IV PRN; -CEFAZOLIN IV 2,000 MG/60 ML D5W IV ONE; -CEFAZOLIN SOD 1 GM VIAL ONE; -EpHEDrine SULFATE INJ 50 MG/ML AMP IV PRN; -FENTANYL CITRATE INJ 50 MCG/1 ML 2 ML VIAL IV PRN; -FENTANYL CITRATE INJ 50 MCG/1 ML 2 ML VIAL ONE; -HEPARIN SOD (PORCINE) 1000 UNIT/ML 10 ML VIAL ONE; -HYDROCODONE/ACETAMOPHEN 5/325MG TAB PO PRN; -LACTATED RINGER'S 1000ML 1,000 ML IV SCH; -LIDOCAINE HCL 1% 20 ML VIAL ONE; -LIDOCAINE HCL 2% 2 ML VIAL (20MG/ML) ONE; -MIDAZOLAM HCL 1 MG/ML 2ML VIAL ONE; -ONDANSETRON INJ 2 MG/ML 2 ML VIAL IV PRN; -PROPOFOL IV EMULSION 10 MG/ML 20 ML VIAL IV ONE; -THROMBIN FOR SOLN 20000 UNIT KIT ONE
[2017-05-22 13:10] LABS: BASO % 0.3 %; BASO ABS # 0.02 K/uL (0-0.2); COMPLETE YES; EOS % 2.6 %; IG% 0.1 %; LYMPH % 31.2 %; LYMPH ABS # 2.39 K/uL (1.2-3.4); MEAN CELL VOLUME 95.8 fL (80-100); MEAN CORPUSCULAR HEMOGLOBIN 32.5 pg (25-34); MEAN CORPUSCULAR HGB CONC 33.9 g/dl (32-36); MEAN PLATELET VOLUME 9.7 fL (7.4-10.4); MONO % 9.8 %; PLATELET COUNT 535 K/uL (130-400); RED BLOOD COUNT 4.28 M/uL (4.7-6.1); WHITE BLOOD COUNT 7.66 K/uL (4.8-10.8)
[2017-05-22 13:42] LABS: ALT/SGPT 63 U/L (12-78); BLOOD UREA NITROGEN 22 mg/dl (7-18); BUN/CREATININE RATIO 23.7 (10-20); CARBON DIOXIDE 25 mmol/L (21-32); CHLORIDE 110 mmol/L (98-107); CREATININE 0.92 mg/dl (0.60-1.40); GLUCOSE 91 mg/dl (70-99); POTASSIUM 4.6 mmol/L (3.5-5.1); SODIUM 141 mmol/L (136-145)
[2017-05-22 13:44] LABS: ALB/GLOB RATIO 0.8 (0.9-2); ALKALINE PHOSPHATASE 90 U/L (45-117); AST/SGOT 29 U/L (15-37)
== END | disposition home or self-care (01) ==
LOC: C.LABPBG 07:55
PROVIDERS: ATTEND Internal Medicine Hematology & Oncology
DX: C34.2 Malignant neoplasm of middle lobe, bronchus or lung (principal)

== ENCOUNTER → 2017-05-22 | Outpatient (CLI) | payer OTHER ==
[2017-05-22 13:42] LABS: ESTIMATED AVERAGE GLUCOSE 146 mg/dl; HA1C FLAG Normal (Normal)
== END | disposition home or self-care (01) ==
LOC: C.LABPBG 07:52
PROVIDERS: ATTEND Internal Medicine
DX: E11.9 Type 2 diabetes mellitus without complications (principal); I10 Essential (primary) hypertension; R79.89 Other specified abnormal findings of blood chemistry; C34.2 Malignant neoplasm of middle lobe, bronchus or lung

== ENCOUNTER → 2017-06-12 | Outpatient (CLI) | payer OTHER ==
[~2017-06-12] MED LIST changes: +OPTIRAY 320 IV PRN
[2017-06-12 12:21] LABS: BASO % 0.3 %; BASO ABS # 0.02 K/uL (0-0.2); COMPLETE YES; EOS % 1.4 %; HEMATOCRIT 40.1 % (42-52); IG% 0.1 %; LYMPH % 28.6 %; LYMPH ABS # 2.04 K/uL (1.2-3.4); MEAN CELL VOLUME 96.4 fL (80-100); MEAN CORPUSCULAR HEMOGLOBIN 31.7 pg (25-34); MEAN CORPUSCULAR HGB CONC 32.9 g/dl (32-36); MONO % 10.4 %; NEUT % 59.2 %; PLATELET COUNT 363 K/uL (130-400); RED BLOOD COUNT 4.16 M/uL (4.7-6.1); WHITE BLOOD COUNT 7.13 K/uL (4.8-10.8)
[2017-06-12 12:50] LABS: ALT/SGPT 60 U/L (12-78); BLOOD UREA NITROGEN 21 mg/dl (7-18); BUN/CREATININE RATIO 20.8 (10-20); CALCIUM 8.8 mg/dl (8.5-10.1); CARBON DIOXIDE 24 mmol/L (21-32); CHLORIDE 111 mmol/L (98-107); CREATININE 0.99 mg/dl (0.60-1.40); GLUCOSE 105 mg/dl (70-99); MAGNESIUM 2.1 mg/dl (1.8-2.4); POTASSIUM 4.2 mmol/L (3.5-5.1); SODIUM 142 mmol/L (136-145)
[2017-06-12 12:53] LABS: ALB/GLOB RATIO 0.8 (0.9-2); ALKALINE PHOSPHATASE 83 U/L (45-117); AST/SGOT 32 U/L (15-37)
--- NOTE | 2017-06-12 14:39 | DIAGNOSTIC IMAGING REPORT ---
CT ABD/PELVIS IV AND ORAL CONT CLINICAL HISTORY: NON SMALL CELL LUNG CA COMPARISON STUDY: PET/CT dated 01/26/2017 TECHNIQUE: Following the IV administration of 115 mL of Optiray-320, CT scan of the abdomen and pelvis was performed from the lung bases to the proximal femurs. Images are reviewed in the axial, sagittal, and coronal planes. IV contrast was administered without complication. A dose lowering technique was utilized adhering to the principles of ALARA. CT DOSE: 869.47 mGy.cm FINDINGS: Lower chest: There is a lobulated 26 mm right lower lobe pulmonary nodule. There is an irregular marginated 28 mm right middle lobe pulmonary nodule. There is elevation of the right hemidiaphragm. Liver: There are multiple hypodense hepatic lesions. These remain similar to the prior PET/CT scan. These were not metabolically active and likely represent cysts. Gallbladder: Unremarkable. Spleen: Normal in size and attenuation. Pancreas: Unremarkable. Adrenal glands: Unremarkable. Kidneys: No renal masses are visualized. There is a duplex right renal collecting system. 2 ureters are visualized down to the level just superior to the ureterovesical junction. Bowel: There are no transition zones indicate bowel obstruction. There is colonic diverticulosis. There are no acute peridiverticular inflammatory changes. There is no evidence of acute appendicitis. Peritoneum: There is no intraperitoneal free air or abdominal ascites. There are postsurgical changes of left inguinal hernia repair Vasculature: The abdominal aorta is normal in course and caliber. Adenopathy: There are multiple mildly enlarged mesenteric lymph nodes similar in appearance to the preceding study. Pelvic viscera: The bladder, and pelvic viscera are unremarkable. Skeletal structures: There are lytic lesions involving the right seventh and eighth ribs, suspicious for metastatic foci. IMPRESSION: 1. Lytic lesions involving the right seventh and eighth ribs, suspicious for metastatic foci 2. 26 mm right lower lobe pulmonary nodule and irregular marginated 28 mm right middle lobe pulmonary nodule. These nodules are suspicious for neoplasm 3. Mild nonspecific mesenteric adenopathy similar to the preceding PET CT scan 4. Multiple hepatic hypodense lesions likely representing cysts 5. Duplex right renal collecting system Electronically signed by: Rodolfo Maloney M.D. 06/12/2017 2:37 PM Dictated Date/Time: 06/12/2017 2:22 PM
--- NOTE | 2017-06-12 16:01 | DIAGNOSTIC IMAGING REPORT ---
CHEST CT WITH CONTRAST HISTORY: NON SMALL CELL LUNG CANCER. Follow-up study. TECHNIQUE: Multiaxial CT images of the chest were performed following the intravenous administration of contrast. A dose lowering technique was utilized adhering to the principles of ALARA. COMPARISON: CT chest 01/05/2017. FINDINGS: No focal thyroid nodule identified. There are a few nonspecific mildly prominent AP window lymph nodes. Mildly enlarged subcarinal lymph node is seen, 1.7 x 1.2 cm, previously 1.9 x 1.2 cm. Right hilar lymph node measuring 2.0 x 1.1 cm is noted, previously 2.0 x 1.1 cm. No new pathologic appearing adenopathy identified. Heart is mildly enlarged without pericardial effusion. Coronary arterial calcifications are noted. There is mild degree of mixed plaque involving the thoracic aorta without aneurysm. There is suture material within the right upper lobe near the superior segment suggesting prior wedge resection. Spiculated soft tissue nodule within this region is seen, 2.5 x 1.4 cm, previously a 6 x 4 mm nodule is seen within this distribution suggesting residual or recurrent disease with adjacent subsegmental pleural parenchymal scarring. Pleural-based spiculated nodule of the anterior segment left upper lobe on image 70 measures 2.3 x 1.9 cm, previously 2.5 x 1.8 cm. Spiculated pleural-based mass of the lateral segment right middle lobe is seen, 3.0 x 2.0 cm on image 157, previously 2.9 x 2.2 cm. Spiculated nodule of the posterior basal segment right lower lobe on image 150 measures 2.5 x 1.6 cm, previously 1.4 x 1.2 cm. There is no pneumothorax or pleural effusion. Moderate upper lobe prominent centrilobular emphysema is noted. There is mild dependent bibasilar atelectasis. 5 mm noncalcified pulmonary nodule of the left upper lobe on image 89 is slightly increased from comparison, previously 4 mm. This is nonspecific. The central airways are patent. Bronchial wall thickening is seen within the level lung bases suggesting background bronchitis. Nonspecific 11 mm density involves the medial basal segment right lower lobe seen on image 204. Innumerable low attenuating lesions throughout the liver are again seen which appear stable from comparison suggesting cysts. Please see CT abdomen and pelvis of same day for further details. The remaining imaged upper abdominal structures are within normal limits. The bones appear intact. Prior median sternotomy. Lytic destructive lesions are seen involving the posterolateral aspects of the right seventh and eighth ribs, new from comparison suggesting metastasis. IMPRESSION: 1. Surgical suture material within the region of the superior segment right upper lobe suggests prior wedge resection/partial lobectomy with spiculated soft tissue nodule encasing the suture material, 2.5 x 1.4 cm suspicious for recurrent or residual disease. 2. Multifocal spiculated nodules and masses of the bilateral lungs as above compatible with metastasis, slightly enlarged from comparison. 3. Development of lucent lytic lesions involving the lateral right seventh and eighth ribs are compatible with bony metastasis. 4. Nonspecific mildly enlarged subcarinal and right hilar lymph nodes are unchanged from 01/05/2017, equivocal for lymphatic metastasis. 5. Emphysema. Electronically signed by: Angel Martinez M.D. 06/12/2017 3:59 PM Dictated Date/Time: 06/12/2017 2:26 PM
== END | disposition home or self-care (01) ==
LOC: C.LABPBG 08:46
PROVIDERS: ATTEND Internal Medicine Hematology & Oncology
DX: C34.2 Malignant neoplasm of middle lobe, bronchus or lung (principal); R91.1 Solitary pulmonary nodule

== ENCOUNTER → 2017-06-29 | Outpatient (CLI) | payer OTHER ==
[~2017-06-29] MED LIST changes: -OPTIRAY 320 IV PRN
--- NOTE | 2017-06-29 13:45 | DIAGNOSTIC IMAGING REPORT ---
PET/CT SKULL-THIGH CLINICAL HISTORY: LUNG CANCER COMPARISON STUDY: 01/26/2017, chest CT dated 06/12/2017 FINDINGS: Patient was injected with 12.6 mCi of F 18 labeled FDG. Following the standard induction phase, PET/CT scanning is performed from the skull base the upper thigh region. Uptake within the neck is felt to be physiologic. Within the thorax, there has been slight interval decrease in the size of the pleural-based left upper lobe pulmonary mass which probably measures 29 x 19 mm. This has an SUV maximum of 7.6 compared to a prior value of 21. There is a persistent FDG avid subcarinal lymph node with SUV maximum of 6.4. There is a 31 mm FDG avid right middle lobe mass which remain similar in size. This has an SUV maximum of 2.7 compared to a prior measurement of 6.7. There is a 23 mm right lower lobe pulmonary mass which has increased in size when compared the prior study using having measured 14 mm. This lesion demonstrates background activity. There is a persistent area of FDG avid pleural thickening at the right lung base laterally. There is associated rib destruction which was not visible on the prior study. There are stable hepatic hypodensities which are not FDG avid and likely represent cysts. There is a persistent curvilinear area of increased FDG activity measuring 15 cm in length. This involves the right lateral abdominal wall/right lower chest wall. This is FDG avid with SUV maximum of 5.8. There is no pathologic adrenal activity. There is physiologic urinary tract and bowel activity. There is no pathologic lenin activity within the abdomen or pelvis. IMPRESSION: Mixed treatment response. Multiple FDG pulmonary lesions, several which are smaller with decreased FDG activity. In addition there is evidence for pleural metastasis with interval rib destruction. There is an enlarging 23 mm right lower lobe pulmonary nodule, however this nodule is not definitely FDG avid. Electronically signed by: Rodolfo Maloney M.D. 06/29/2017 1:43 PM Dictated Date/Time: 06/29/2017 1:29 PM
== END | disposition home or self-care (01) ==
LOC: C.PET 11:01
PROVIDERS: ATTEND Internal Medicine Hematology & Oncology
DX: C34.2 Malignant neoplasm of middle lobe, bronchus or lung (principal)

== ENCOUNTER → 2017-07-14 | Outpatient (CLI) | payer OTHER ==
[~2017-07-14] MED LIST changes: +GADAVIST IV PRN
--- NOTE | 2017-07-14 08:24 | DIAGNOSTIC IMAGING REPORT ---
Brain MRI WITH AND WITHOUT CONTRAST HISTORY: NON SMALL CELL LUNG CA TECHNIQUE: Multiplanar multisequence MRI of the brain was performed both before and after the intravenous administration of contrast. COMPARISON STUDY: Head CT 06/29/2017. Brain MRI 04/03/2017. FINDINGS: There is no mass, hematoma, midline shift, or acute infarct. The paranasal sinuses are clear. The mastoid air cells are clear. The ventricles and sulci demonstrate mild age-related involutional changes. Scattered foci of T2 hyperintensity seen within the periventricular and subcortical white matter are nonspecific but suggestive of mild microvascular ischemic changes. The major vascular flow voids at the skull base are well-maintained. There is a 12 mm hypoenhancing nodule within the right side of the pituitary gland. This favors a macroadenoma. No additional areas of abnormal enhancement. IMPRESSION: 1. No evidence for intracranial metastatic disease. 2. 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 Dedicated pituitary MRI can be used for further evaluation if clinically warranted. Electronically signed by: Yefri Marin M.D. 07/14/2017 8:22 AM Dictated Date/Time: 07/14/2017 8:02 AM
== END | disposition home or self-care (01) ==
LOC: C.MRI 06:38
PROVIDERS: ATTEND Internal Medicine Hematology & Oncology
DX: C34.2 Malignant neoplasm of middle lobe, bronchus or lung (principal)

== ENCOUNTER → 2017-08-07 | Outpatient (CLI) | payer OTHER ==
[~2017-08-07] MED LIST changes: -GADAVIST IV PRN; +OPTIRAY 320 IV PRN
--- NOTE | 2017-08-07 16:16 | DIAGNOSTIC IMAGING REPORT ---
CT ABD/PELVIS IV AND ORAL CONT CLINICAL HISTORY: Non-small cell lung carcinoma COMPARISON STUDY: 06/12/2017 TECHNIQUE: Following the IV administration of 115 mL of Optiray-320, CT scan of the abdomen and pelvis was performed from the lung bases to the proximal femurs. Images are reviewed in the axial, sagittal, and coronal planes. IV contrast was administered without complication. A dose lowering technique was utilized adhering to the principles of ALARA. CT DOSE: 958.46 mGy.cm FINDINGS: Lower chest: There is pulmonary emphysema. There is a linear scarring within the right lower lobe. There is a 19 mm right middle lobe pulmonary nodule. There is a 24 mm right lower lobe pulmonary nodule. Both of these nodules are slightly smaller than on the prior study. Liver: There are multiple water attenuation hepatic hypodensities consistent with cysts. The left lobe appears atrophic. Gallbladder: Unremarkable. Spleen: Normal in size and attenuation. Pancreas: Unremarkable. Adrenal glands: Unremarkable. Kidneys: There is symmetric renal cortical enhancement. The kidneys are normal in size without hydronephrosis. Bowel: There are no transition zones indicate bowel obstruction. There is colonic diverticulosis. There are no acute peridiverticular inflammatory changes. There is no evidence of acute appendicitis. Peritoneum: There is no intraperitoneal free air or abdominal ascites. There is stable right iliopsoas scarring. There are postsurgical changes of a left inguinal hernia repair Vasculature: The abdominal aorta is normal in course and caliber. Adenopathy: There are small aortocaval lymph nodes which are not pathologically enlarged by size criteria. Mildly prominent mesenteric lymph nodes remain stable Pelvic viscera: The bladder, and pelvic viscera are unremarkable. Skeletal structures: There are lytic lesions involving the right seventh and eighth ribs. There are postsurgical changes within the lumbar spine. IMPRESSION: 1. Slight interval decrease in the size of the right middle and right lower lobe pulmonary nodules, currently measuring 19 mm and 24 mm respectively 2. Persistent lytic lesions involving the right seventh and eighth ribs 3. Multiple hepatic hypodense lesions likely representing cysts 4. Mild mesenteric adenopathy, similar to the prior study Electronically signed by: Rodolfo Maloney M.D. 08/07/2017 4:14 PM Dictated Date/Time: 08/07/2017 4:08 PM
--- NOTE | 2017-08-07 16:18 | DIAGNOSTIC IMAGING REPORT ---
(CHEST) THORAX WITH CT DOSE: HISTORY: Lung carcinoma LUNG CA TECHNIQUE: Multiaxial CT images of the chest were performed following the intravenous administration of contrast. A dose lowering technique was utilized adhering to the principles of ALARA. COMPARISON: 06/12/2017 FINDINGS: Slight improvement overall in the metastatic change throughout the lungs. Multifocal nodular densities are again noted. The bulk of these are slightly diminished in prominence. At the peripheral aspect of the left upper lung is a stable pleural-based nodule. The nodular density adjacent to and/or involving the postoperative linear suture line posterior right lung is unchanged in terms of volume. Nodular densities anterior aspect right middle lobe has diminished to 2.5 cm from 3.3 cm. Nodular density right lower lobe at the posterior costophrenic angle measures 2 cm diminished from 2.3 cm. Nodular density adjacent to the posterior diaphragm transaxial image 34 has shown near complete resolution. Multiple small additional nodular densities remain stable. Hilar and mediastinal adenopathy appears described is unchanged. Bony metastatic change is considered nonprogressive. IMPRESSION: 1. Slight improvement in the pulmonary metastatic disease compared to the prior exam. 2. Several nodular densities have disease as described are somewhat diminished in overall volume. 3. Multiple additional nodules are stable. 4. No evidence for new interval or progressive process. The above report was generated using voice recognition software. It may contain grammatical, syntax or spelling errors. Electronically signed by: Saad Tejada M.D. 08/07/2017 4:17 PM Dictated Date/Time: 08/07/2017 4:08 PM
== END | disposition home or self-care (01) ==
LOC: C.CTS 13:38
PROVIDERS: ATTEND Nurse Practitioner Family
DX: C34.2 Malignant neoplasm of middle lobe, bronchus or lung (principal); R91.8 Other nonspecific abnormal finding of lung field; M89.9 Disorder of bone, unspecified; K76.9 Liver disease, unspecified

== ENCOUNTER → 2017-10-29 | Outpatient (CLI) | payer OTHER ==
--- NOTE | 2017-10-29 15:11 | DIAGNOSTIC IMAGING REPORT ---
ABD/PELVIS IV AND ORAL CONT CT DOSE: HISTORY: Lung carcinoma 10/16/17 0937 CREA 1.43 TECHNIQUE: Multiaxial CT images of the abdomen and pelvis were performed following the use of intravenous and oral contrast. A dose lowering technique was utilized adhering to the principles of ALARA. COMPARISON STUDY: 08/07/2017 FINDINGS: Unchanging parenchymal nodularity and interstitial change of the right and to a lesser extent left base. Dimensions of the nodular densities previously noted have remains stable. Hepatic hypodensities seen diffusely throughout the right hepatic lobe are stable. No biliary ductal distention. Pancreas is uniform as is the spleen. Several small mesenteric as well as retroperitoneal nodes considered stable. Nonobstructive bowel pattern. Bladder is midline. No free fluid within the pelvic cul-de-sac. Unchanging lymph node origin left inguinal canal. This is unaltered. No evidence for progressive adenopathy as compared to the prior study. Lytic changes involving the right seventh and eighth ribs remains stable. IMPRESSION: 1. Stable nodularity and interstitial change right lung base. 2. Multiple hepatic cysts stable. 3. Several nonspecific nodes of the mesentery pelvic and inguinal regions also stable. 4. No evidence for new interval or progressive disease compared to the prior exam. The above report was generated using voice recognition software. It may contain grammatical, syntax or spelling errors. Electronically signed by: Saad Tejada M.D. 10/29/2017 3:10 PM Dictated Date/Time: 10/29/2017 3:06 PM
--- NOTE | 2017-10-29 15:17 | DIAGNOSTIC IMAGING REPORT ---
CHEST CT WITH CONTRAST CT DOSE: 847.06 mGy.cm HISTORY: Lung cancer. Follow-up. TECHNIQUE: Multiaxial CT images of the chest were performed following the intravenous administration of contrast. A dose lowering technique was utilized adhering to the principles of ALARA. COMPARISON: Chest CT 07/31/1717. FINDINGS: Emphysema. No pleural effusions. No pneumothorax. The central airways remain patent. Slight decrease in size in the peripheral irregular density within the left upper lobe which currently measures 2 cm, previous measuring 2.5 cm. Stable 5 mm nodule within the left upper lobe on image 107. No significant change in the lobular nodules within the base of the right lower lobe. Dominant nodule measures 2.3 cm. No solid change in the irregular 2.3 cm nodule within the right middle lobe. No change in the soft tissue thickening surrounding the suture material within the superior segment of the right lower lobe. No new pulmonary nodules identified. Mild bilateral hilar lymphadenopathy, unchanged. Dominant right hilar lymph node measures 1.9 x 1.2 cm. The central pulmonary arteries are patent. Normal caliber thoracic aorta. There are poststernotomy changes. Patchy areas of sclerosis within a few of the right ribs are again noted and consistent with metastatic disease. IMPRESSION: Slight decrease in size in the left upper lobe peripheral metastatic focus. Otherwise, the remaining sites of metastatic disease within the chest are not significantly changed as described above Electronically signed by: Yefri Marin M.D. 10/29/2017 3:15 PM Dictated Date/Time: 10/29/2017 3:05 PM
== END | disposition home or self-care (01) ==
LOC: C.CTS 09:08
PROVIDERS: ATTEND Internal Medicine Hematology & Oncology
DX: C34.2 Malignant neoplasm of middle lobe, bronchus or lung (principal)

== ENCOUNTER → 2018-01-08 | Outpatient (CLI) | payer OTHER ==
[~2018-01-08] MED LIST changes: -HYDR-5688 PO
--- NOTE | 2018-01-08 16:26 | DIAGNOSTIC IMAGING REPORT ---
ABD/PELVIS IV AND ORAL CONT CLINICAL HISTORY: 77 years-old Male presenting with LUNG CA. TECHNIQUE: Multidetector CT of the abdomen and pelvis was performed after the administration of oral and intravenous contrast. IV contrast: 93 mL of Optiray 320. A dose lowering technique was used consistent with the principles of ALARA (as low as reasonably achievable). COMPARISON: 10/29/2017. CT DOSE (mGy.cm): The estimated cumulative dose is 754.46 mGy.cm. FINDINGS: [employer] topogram: Median sternotomy wires and mediastinal surgical clips. Lung bases: Solid subpleural 2.4 cm nodule in the posterior basal right lower lobe, previously 2.1 cm. Solid ovoid 2.0 cm nodule in the right middle lobe, previously 2.1 cm. Postsurgical changes of the peripheral posterior segment of the right upper lobe. Bronchial wall thickening, emphysema, mosaic attenuation, and dependent atelectasis noted. Multichamber enlargement of the heart. Coronary artery and aortic valve calcification. Trace right pleural effusion may be present. Liver: Congenital hypoplasia of the medial segments of the left hepatic lobe. Congenital hypoplasia or atrophy of the lateral segments of the left hepatic lobe. Multiple well-defined hypodensities scattered throughout the liver unchanged in size and appearance from prior and most consistent with hepatic cysts. No suspicious hepatic lesion. Patent hepatic vasculature. Biliary: No intrahepatic or extrahepatic biliary ductal dilatation. Normal gallbladder. Pancreas: Normal. Spleen: Normal. Adrenal glands: Normal. Kidneys and ureters: Duplicated right renal collecting system. The ureters may join in the distal portion. No jessica evidence of an ectopic ureteral insertion. Renal parenchyma normal. No hydronephrosis. Bladder: Normal. Pelvic organs: Prostate enlargement likely secondary to benign prostatic hyperplasia. Bowel: Diverticulosis of the sigmoid colon. No pericolonic fat stranding. The appendix is normal. No bowel obstruction. Peritoneal cavity: No free fluid or intraperitoneal gas. 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 Lymph nodes: Subcentimeter prominent lymph nodes in the portacaval region measuring up to 8 mm in the short axis, unchanged from prior and likely reactive. No pathologically enlarged lymph nodes in the abdomen or pelvis by CT size criteria. Vasculature: Atherosclerosis of the normal caliber abdominal aorta. IVC patent. Abdominal wall: Encysted hydrocele noted at the deep ring of the left inguinal canal. Fat-containing left inguinal hernia. Musculoskeletal: Degenerative changes of the spine. Sclerotic lesion in the right lateral seventh and eighth ribs unchanged from prior exam. IMPRESSION: 1. No evidence of metastatic disease in abdomen or pelvis. 2. Persistent solid pulmonary nodules in the right lower lobe and right middle lobe, concerning for metastatic disease. 3. Stable appearance of 2 sclerotic osseous lesions in the right lateral seventh and eighth ribs, which have evolved since 06/12/2017 suggesting treatment response. 4. Trace right pleural effusion. 5. Polycystic liver disease. Electronically signed by: Al Bryant M.D. 01/08/2018 4:25 PM Dictated Date/Time: 01/08/2018 4:14 PM
--- NOTE | 2018-01-08 16:34 | DIAGNOSTIC IMAGING REPORT ---
CT SCAN OF THE CHEST WITH IV CONTRAST CLINICAL HISTORY: Lung cancer. COMPARISON STUDY: Chest CT scans dated 10/29/2017 and 01/05/2017. TECHNIQUE: Following the IV administration of 93 cc of Optiray 320, CT scan of the thorax was performed from the thoracic inlet to the upper abdomen. Images are reviewed in the axial, sagittal, and coronal planes. IV contrast was administered without complication. A dose lowering technique was utilized adhering to the principles of ALARA. FINDINGS: Thyroid: Imaged portions of the thyroid gland are normal in size and attenuation. Thoracic aorta: There is mild atherosclerotic calcification of the thoracic aorta, which is normal in caliber and demonstrates standard 3-vessel arch anatomy. No dissection is seen. A left subclavian central venous infusion port is in place. Heart: Midline sternotomy wires are noted. The heart is mildly enlarged and without pericardial effusion. The coronary arteries are densely calcified. The pulmonary trunk is normal in caliber. Lungs and pleural spaces: The trachea and central airways are clear. Emphysematous change is noted. There is no airspace consolidation typical for pneumonia. Trace pleural fluid and atelectasis is seen at the right lung base. There are postoperative changes and volume loss from right sided pulmonary resection. Numerous pulmonary lesions are again seen. The largest pleural-based lesion in the anterior left upper lobe seen on image #60 has increased in size from 10/29/2017 and measures 3.0 cm (previously measured up to 2.0 cm). A 2.3 cm lesion in the right lower lung image #155 and a 2.3 cm lesion at the anterior right lung base on image #172 is not significantly changed. There is increased soft tissue thickening a long suture material in the right lower lung seen on image 131. This measures up to 1.4 cm in thickness (previously measured up to 1.1 cm). An additional 6 mm nodule in the right posteriorly measuring 117 and is new from previous. A subcentimeter nodule in the left upper lobe on image #80 is unchanged. Mediastinum: There are scattered subcentimeter mediastinal lymph nodes. These are not pathologically enlarged by size criteria. Zoey: A mildly enlarged right hilar node measures 1.3 cm in short axis as seen on image #123 no left hilar adenopathy is identified. Axillae: There is no axillary lymphadenopathy. Upper abdomen: Numerous hepatic cysts measure up to 4.3 cm. A tiny hiatal hernia is identified. No adrenal lesion is seen a lymph node at the esophageal hiatus is seen on image #228 and measures 1.8 x 1.3 cm. Skeletal structures: The skeletal structures are osteopenic. No lytic or blastic bony lesions are seen. There are mild compression forms of T2, T3, and T4. Degenerative change and hyperkyphosis are noted in the thoracic spine. Arthritic changes also seen in the shoulders. IMPRESSION: 1. Cardiomegaly, emphysema, and postoperative change from right-sided pulmonary resection as above. 2. There is evidence of modest progression as compared to 10/29/2017. The largest lesion in the left upper lobe has increased in size, there is increased soft tissue thickening adjacent to suture material in the right lower lung, and there is a new right lower lobe pulmonary nodule. 3. The remaining pulmonary lesions have not significantly changed as detailed above. 4. A mildly enlarged right hilar node is unchanged. A lymph node at the esophageal hiatus has modestly increased in size from previous. 5. There is no airspace consolidation typical for pneumonia. Trace pleural fluid is seen at the right lung base. 6. Additional findings as above. Electronically signed by: Darshan Ayala M.D. 01/08/2018 4:33 PM Dictated Date/Time: 01/08/2018 4:20 PM
== END | disposition home or self-care (01) ==
LOC: C.CTS 13:44
PROVIDERS: ATTEND Internal Medicine Hematology & Oncology
DX: C34.2 Malignant neoplasm of middle lobe, bronchus or lung (principal); R91.8 Other nonspecific abnormal finding of lung field; M85.88 Other specified disorders of bone density and structure, other site; Q44.6 Cystic disease of liver

== ENCOUNTER → 2018-02-04 | Outpatient (CLI) | payer OTHER ==
[~2018-02-04] MED LIST changes: +LISI-1116 PO; -LISI2.5T5 PO; -OPTIRAY 320 IV PRN
--- NOTE | 2018-02-04 14:59 | DIAGNOSTIC IMAGING REPORT ---
(CHEST) THORAX WITHOUT CT DOSE: 378.56 mGy.cm HISTORY: Lung cancer. Worsening short of breath. TECHNIQUE: Multiaxial CT images of the chest were performed without contrast. A dose lowering technique was utilized adhering to the principles of ALARA. COMPARISON: Chest CT 01/08/2018. FINDINGS: The central airways remain patent. No pneumothorax. No change in the 3 cm subpleural irregular density left subclavian Port-A-Cath terminates in the distal SVC. There are poststernotomy changes. Within the left lung apex. Stable 4 mm nodule within the left upper lobe on image 92. Emphysema is again noted. Small focus of consolidation within the right upper lobe has slight progressed. Consolidation within the base of right lower lobe posteriorly has progressed. This includes significant progression in the nodular pleural thickening within the throughout the right lung base. The pleural thickening at the lateral lung base adjacent to the liver measures up to 2.7 cm in thickness. This also results in partial erosion of the seventh through ninth ribs laterally. Progressive soft tissue nodular thickening is also pronounced medially with a metastatic deposit adjacent to the descending thoracic aorta measuring 2.6 cm. Multiple hypodense lesions throughout the liver are not significantly changed. Soft tissue pleural nodularity within the right upper to midlung zone have also progressed. Right hilar lymph node remains enlarged. This is unchanged. The 2.2 cm pulmonary nodule within the right middle lobe is not significantly changed in size. However, the 2.7 cm nodule within the right lower lobe has increased in size. This previous measured 2.3 cm. There is a new 16 mm subpleural nodule within the right lower lobe on image 177. There is progressive soft tissue nodular thickening adjacent to the suture material and along the right major fissure. A 7 mm right lung base nodule on image 161 is again noted. IMPRESSION: 1. Significant progression of metastatic disease within the right hemithorax most pronounced along the pleura. There is now partial erosion of the right lateral seventh through ninth ribs. 2. Additional findings as described above. Electronically signed by: Yefri Marin M.D. 02/04/2018 2:57 PM Dictated Date/Time: 02/04/2018 2:37 PM
== END | disposition home or self-care (01) ==
LOC: C.CTS 14:19
PROVIDERS: ATTEND Internal Medicine Hematology & Oncology
DX: C34.2 Malignant neoplasm of middle lobe, bronchus or lung (principal); C79.89 Secondary malignant neoplasm of other specified sites

== ENCOUNTER → 2018-04-28 | Outpatient (CLI) | payer OTHER ==
[~2018-04-28] MED LIST changes: +ASPCH81X PO; -ASPI81TA28 PO; -CHOL1000 PO; +CHOL1TAB76 PO; +DXM/4 PO; +FLUT1INH INH; +FOLI1TAB8 PO; -LISI-1116 PO; +MELA1TAB5 PO; +NTRGSL/4 UT; -OMEG10007 PO; +ONDA-170 PO; +OXYC-90 PO; +PROC10TA PO; +albuterol inhaler PO; +fentanyl patch TD
[2018-04-28 11:44] LABS: HEMATOCRIT 30.7 % (42-52); HEMOGLOBIN 9.6 g/dL (14.0-18.0); MEAN CELL VOLUME 86.7 fL (80-100); MEAN CORPUSCULAR HEMOGLOBIN 27.1 pg (25-34); MEAN CORPUSCULAR HGB CONC 31.3 g/dl (32-36); MEAN PLATELET VOLUME 9.1 fL (7.4-10.4); PLATELET COUNT 457 K/uL (130-400); RED CELL DISTRIBUTION WIDTH CV 17.3 % (11.5-14.5); WHITE BLOOD COUNT 23.89 K/uL (4.8-10.8)
[2018-04-28 12:07] LABS: IG# 0.11 K/uL (0.00-0.02); LYMPH % 8.6 %; LYMPH ABS # 2.05 K/uL (1.2-3.4); MONO % 5.4 %; MONO ABS # 1.28 K/uL (0.11-0.59); NEUT % 85.5 %; NEUT ABS # 20.45 K/uL (1.4-6.5)
== END | disposition home or self-care (01) ==
LOC: C.LABSPEC 11:31
PROVIDERS: ATTEND Internal Medicine Hematology & Oncology
DX: C34.2 Malignant neoplasm of middle lobe, bronchus or lung (principal)

== ENCOUNTER → 2018-05-14 | Outpatient (CLI) | payer OTHER ==
[~2018-05-14] MED LIST changes: +OPTIRAY 320 IV PRN
--- NOTE | 2018-05-14 12:26 | DIAGNOSTIC IMAGING REPORT ---
CT ABD/PELVIS IV AND ORAL CONT CLINICAL HISTORY: LUNG CA---- COMPARISON STUDY: 01/08/2018 TECHNIQUE: Following the IV administration of 94 mL of Optiray-320, CT scan of the abdomen and pelvis was performed from the lung bases to the proximal femurs. Images are reviewed in the axial, sagittal, and coronal planes. IV contrast was administered without complication. A dose lowering technique was utilized adhering to the principles of ALARA. CT DOSE: FINDINGS: Lower chest: There is an increasing right pleural effusion. There is right lower lobe atelectasis/consolidation. There are several hypodense foci within the consolidated lung. Liver: There are multiple hepatic hypodensities which approach water attenuation and are consistent with cysts. Gallbladder: Unremarkable. Spleen: Normal in size and attenuation. Pancreas: Unremarkable. Adrenal glands: Unremarkable. Kidneys: There is symmetric renal cortical enhancement. The kidneys are normal in size without hydronephrosis. Bowel: There are no transition zones indicate bowel obstruction. There is sigmoid diverticulosis. There are no acute peridiverticular inflammatory changes. There are no findings to indicate acute appendicitis. Peritoneum: There is no intraperitoneal free air or abdominal ascites. There are postsurgical changes of a left inguinal hernia repair. Vasculature: The abdominal aorta is normal in course and caliber. Adenopathy: There is suspected retrocrural adenopathy at the thoracoabdominal junction. There are no pathologically enlarged intra-abdominal lymph nodes. Pelvic viscera: The bladder, and pelvic viscera are unremarkable. Skeletal structures: There are lytic lesions within the right seventh eighth and ninth ribs, suspicious for neoplasm. There is a 6 cm ring-enhancing mass involving the right chest wall. IMPRESSION: 1. Lytic/destructive lesions involving the right seventh, eighth, ninth ribs, consistent with metastatic disease 2. Increasing right pleural effusion with right lower lobe atelectasis/consolidation 3. Retrocrural lymphadenopathy 4. No evidence of hepatic or adrenal metastasis. 5. Multiple hepatic cysts 6. 6 cm right lateral chest wall mass Electronically signed by: Rodolfo Maloney M.D. 05/14/2018 12:25 PM Dictated Date/Time: 05/14/2018 12:17 PM
--- NOTE | 2018-05-14 12:34 | DIAGNOSTIC IMAGING REPORT ---
CHEST CT WITH CONTRAST CT DOSE: 605.38 mGy.cm HISTORY: Subsequent treatment strategy. Follow-up exam in a patient with history of lung cancer LUNG CA TECHNIQUE: Multiaxial CT images of the chest were performed following the intravenous administration of contrast. A dose lowering technique was utilized adhering to the principles of ALARA. COMPARISON: CT abdomen and pelvis of same day, CT chest 03/24/2018 and 01/08/2018 FINDINGS: Heterogeneous appearance of the thyroid. Nonenlarged supraclavicular lymph nodes are present. Enlarged right hilar lymph node measures 2.1 x 1.0 cm on image 147 series 6, previously 2.2 x 1.1 cm. Prominent AP window lymph nodes. No new adenopathy identified. The heart is mildly enlarged. Coronary arterial calcifications are noted. Prior median sternotomy with CABG. Metallic density structure again noted within the anterior epicardial tissues adjacent to the right ventricle. Left subclavian [id number] catheter terminates within the distal SVC. No thoracic aortic aneurysm or dissection. Imaged great vessels appear patent. The opacified pulmonary arterial tree is unremarkable. Unchanged moderate size right pleural effusion multiple pleural-based enhancing soft tissue nodules redemonstrated, not significantly changed from comparison. Advanced emphysema. Irregular pleural-based nodule about the left upper lobe is unchanged, 2.9 x 1.4 cm, previously 2.9 x 1.2 cm. Bibasilar groundglass opacities suggest atelectasis. Consolidation of the right lower lobe with surgical suture material. Fluid within the lung parenchyma is seen on image 183 series 6, unchanged. Stable 5 mm solid nodule of the left upper lobe on image 100 series 6. Multiple hypodense lesions about the liver redemonstrated suggesting hepatic cysts. No acute process of the imaged upper abdomen. This structure involving multiple lateral right rib redemonstrated from the pleural masses, largest right lateral chest wall lesion is again seen measuring 7.4 x 2.8 cm with areas of internal necrosis and peripheral enhancement causing mild mass effect upon the right hepatic lobe. Trace perihepatic fluid. The size of this lesion appears unchanged from comparison. No definite new bony lesions identified. IMPRESSION: 1. Stable exam with right pleural metastatic lesions and moderate sized right pleural effusion. 2. Bony destruction involving multiple right-sided lateral ribs redemonstrated. 3. Unchanged size and appearance of the spiculated pleural-based nodule of the left upper lobe 4. Unchanged right hilar adenopathy. 5. Additional findings as above. Electronically signed by: Angel Martinez M.D. 05/14/2018 12:33 PM Dictated Date/Time: 05/14/2018 12:19 PM
== END | disposition home or self-care (01) ==
LOC: C.CTS 09:48
PROVIDERS: ATTEND Internal Medicine Hematology & Oncology
DX: C34.2 Malignant neoplasm of middle lobe, bronchus or lung (principal); M85.88 Other specified disorders of bone density and structure, other site; J90 Pleural effusion, not elsewhere classified; R59.0 Localized enlarged lymph nodes; K76.89 Other specified diseases of liver; R22.2 Localized swelling, mass and lump, trunk

== ENCOUNTER → 2018-05-20 | Day surgery (SDC) | payer OTHER ==
[2018-05-20] VITALS (8 sets, daily range): BP systolic 131–160; BP diastolic 72–88; PULSE 63–86; TEMP 36.3–36.4; O2SAT 93–97
[~2018-05-20] MED LIST changes: -OPTIRAY 320 IV PRN
[2018-05-20 08:31] LABS: INR 0.9 (0.9-1.1); PTT PATIENT 23.1 SECONDS (21.0-31.0)
--- NOTE | 2018-05-20 09:55 | Discharge Instructions ---
Discharge Instructions Procedure Procedure Date: May 20, 2018. Reason for visit: Non Small Cell Lung Ca, Increased Sob. Discharge Discharge Date: May 20, 2018. Discharge Diagnosis: s/p right thoracentesis Instructions Activity Recommendations: 1 Day-May resume regular activity, 48 Hours of decreased exertion Return to School/Work: no limitations Recommended Home Diet: No Limitations Provider Instructions: ACTIVITY RECOMMENDATIONS: * Rest today. * Resume regular activity in one day. MEDICATIONS: * May take Tylenol or Ibuprofen as needed for pain. DIET: * Resume previous diet. SPECIAL CARE INSTRUCTIONS: Call your doctor if: * Temperature above 101 degrees F. * Pain not relieved by pain medicine ordered. * Increased drainage or redness from incision. * Notify your doctor with any questions or concerns. Call your doctor or go to the nearest Emergency Department if you experience: * Increased chest pain or shortness of breath. FOLLOW UP VISIT: Follow-up with Referring Physician as scheduled. Allergies Coded Allergies: Atorvastatin (Unverified Adverse Reaction, Unknown, DIDN'T AGREE WITH ME, 05/20/18) Bailey Anderson Recommendations: Call your doctor if: * Temperature above 101 degrees * Pain not relieved by pain medicine ordered * There is increased drainage or redness from any incision * You have any unanswered questions or concerns. Your Doctors Instructions noted above were prepared by provider Donnell Cox. Patient Signature Section: Patient Instructions Signature Page Jim Novoa Patient (or Guardian) Signature/Date: I have read and understand the instructions given to me by my caregivers. Caregiver/RN/Doctor Signature/Date: The above-named patient and/or guardian has received patient instructions on this date. + Original Patient Signature Page (only) stays with chart. Please make copy for patient.
--- NOTE | 2018-05-20 10:17 | DIAGNOSTIC IMAGING REPORT ---
ULTRASOUND GUIDED RIGHT THORACENTESIS CLINICAL HISTORY: Non-small cell lung cancer. Right pleural effusion. Request for thoracentesis. COMPARISON STUDY: Chest CT May 14, 2018. PROCEDURE: The procedure, risks and benefits were discussed with the patient including the risk of bleeding, pneumothorax and injury to adjacent structures. The patient agreed to the procedure and informed written consent was obtained. The procedure was performed by Dr. Cox following a timeout. Sonography of the right hemithorax demonstrated a [id number] complex right pleural effusion with pleural tumor. The largest pocket was targeted. Skin overlying this pocket was prepped and draped in sterile fashion and local anesthesia was achieved with 1% lidocaine. Under direct ultrasound guidance, a 5 Tristanian one-step catheter was inserted into the pleural space. There was immediate return of straw-colored pleural fluid. A total 500 cc was removed. The catheter was removed. The patient tolerated the procedure well and no immediate complications were evident. IMPRESSION: Successful ultrasound guided right thoracentesis with drainage of 500 cc of straw-colored pleural fluid. No immediate complications evident. Electronically signed by: Donnell Cox M.D. 05/20/2018 10:16 AM Dictated Date/Time: 05/20/2018 10:14 AM
--- NOTE | 2018-05-20 11:29 | DIAGNOSTIC IMAGING REPORT ---
CHEST ONE VIEW PORTABLE CLINICAL HISTORY: 77 years-old Male presenting with s/p right thoracentesis. TECHNIQUE: Portable upright AP view of the chest was obtained. COMPARISON: 05/11/[address] from 05/14/2018. FINDINGS: Left subclavian Mediport terminates in the mid SVC. Median sternotomy wires and mediastinal surgical clips noted. Atherosclerosis of aortic arch. Cardiac silhouette mildly enlarged though obscured along the right heart border. Elevation of the right hemidiaphragm with persistent small to moderate right pleural effusion. Density at the right apex may represent a loculation. No pneumothorax. Basilar opacities greater on the right. The peripheral/pleural-based left upper lobe nodule seen on recent CT is not well appreciated on radiograph. The presence of rib destruction is also better demonstrated on most recent chest CT. IMPRESSION: 1. Small to moderate right pleural effusion. No pneumothorax. 2. Right greater than left bibasilar opacities, possibly atelectasis. 3. The presence of pleural metastatic disease, the left upper lobe nodule, and rib destruction are better demonstrated on recent chest CT. Electronically signed by: Al Bryant M.D. 05/20/2018 11:28 AM Dictated Date/Time: 05/20/2018 11:25 AM
== END | disposition home or self-care (01) ==
LOC: C.ACU 07:38
PROVIDERS: ATTEND Internal Medicine Hematology & Oncology
DX: C34.2 Malignant neoplasm of middle lobe, bronchus or lung (principal)